=== PATIENT | female | born 1965 | race Caucasian/White ===

== ENCOUNTER 2021-10-18 16:34 | Emergency (ER) | payer OTHER ==
[~2021-10-18 16:34] MED LIST: CYCLOBENZAPRINE10 MG PO; GABAPENTIN600 MG PO; GABAPENTIN800 MG PO; HYDROCODON-ACE1 EAC2 PO; HYDROCODON-ACE1 EAC6 PO; IBUPROFEN800 MG PO; MELOXICAM15 MG PO; NEURONTIN300 MG PO; NORCO 7.5-3251 EACH PO
[2021-10-18 18:57] LABS: INFLUENZA A NAA NEGATIVE (NEGATIVE)
[2021-10-18 19:01] LABS: CORONAVIRUS 2019 SARS-COV-2 POSITIVE (NEGATIVE)
[2021-10-18] MEDS ORDERED: AZITHROMYCIN250 MG PO (19:44)
[2021-10-18] MEDS ORDERED: PREDNISONE 20MG20 MG PO (19:44)
== END 2021-10-18 20:20 | disposition home or self-care (01) ==
LOC: FER 16:34
PROVIDERS: Nurse Practitioner Family
DX: U07.1 COVID-19 (principal); I10 Essential (primary) hypertension; K21.9 Gastro-esophageal reflux disease without esophagitis; Z28.310 Unvaccinated for COVID-19; Z88.1 Allergy status to other antibiotic agents; Z91.040 Latex allergy status; Z79.899 Other long term (current) drug therapy
CPT/HCPCS: 71046; J1100; U0002